=== PATIENT | female | born 1945 | race Caucasian/White ===

== ENCOUNTER 2017-01-21 18:47 | Emergency (ER) | payer MEDICAID ==
[2017-01-21 18:58] VITALS: PULSE 63; RESP 18; TEMP 98; O2SAT 97
[2017-01-21 19:01] VITALS: BP 152/86
--- NOTE | 2017-01-21 19:33 | C.PDOC ---
History Of Present Illness 71 year old female presents to ED with complaints of itchy rash and skin for few weeks. Denies any fever, discharge, SOB, or known allergens. Time Seen by Provider: 01/21/17 19:26 Chief Complaint (Nursing): Abnormal Skin Integrity History Per: Patient History/Exam Limitations: no limitations Onset/Duration Of Symptoms: Days Current Symptoms Are (Timing): Still Present Quality Of Symptoms: Itching Severity: Mild Recent travel outside of the [place]: No Past Medical History Reviewed: Historical Data, Nursing Documentation, Vital Signs Vital Signs: Last Vital Signs Temp 98 F 01/21/17 18:57 Pulse 63 01/21/17 18:57 Resp 18 01/21/17 18:57 BP 152/86 H 01/21/17 18:57 Pulse Ox 97 01/21/17 20:09 - Medical History PMH: HTN, Hypercholesterolemia Surgical History: Cholecystectomy Family History: States: Unknown Family Hx - Social History Hx Tobacco Use: No Hx Alcohol Use: No Hx Substance Use: No - Immunization History Hx Tetanus Toxoid Vaccination: No Hx Influenza Vaccination: No Hx Pneumococcal Vaccination: No Review Of Systems Constitutional: Negative for: Fever, Chills Cardiovascular: Negative for: Chest Pain Respiratory: Negative for: Shortness of Breath, Sputum, Wheezing Gastrointestinal: Negative for: Vomiting, Abdominal Pain, Diarrhea Skin: Positive for: Rash (itchy rash and skin) Neurological: Negative for: Headache, Dizziness Physical Exam - Physical Exam Appears: Non-toxic, No Acute Distress Skin: Warm, Dry, Rash (dryness and flaky areas to bilateral dorsal legs and upper extremities. no vesicles, patches, plaques or discharge) Head: Atraumatic, Normacephalic Eye(s): bilateral: Normal Inspection, EOMI Neck: Normal ROM Chest: Symmetrical Extremity: Normal ROM, No Swelling Neurological/Psych: Oriented x3, Normal Speech, Normal Motor, Normal Sensation ED Course And Treatment O2 Sat by Pulse Oximetry: 97 (room air) Pulse Ox Interpretation: Normal Medical Decision Making Medical Decision Making: Skin exam shows no acute rash, cellulitis or signs of fungal infection. Itchiness likely related to dryness and eczema. Recommend moisturizer. Disposition Counseled Patient/Family Regarding: Need For Followup, Rx Given - Disposition Referrals: Clinic,Med Surg [Primary Care Provider] - Disposition: HOME/ ROUTINE Disposition Time: 19:32 Condition: GOOD Additional Instructions: Wero day al delores dos veces al da Harry benadryl segn sea necesario para picar Siga con el dermatlogo si los sntomas persisten Prescriptions: Colloidal Oatmeal [Eucerin Eczema Relief] 226 gm TP DAILY #1 cream..g. Instructions: Dermatitis (ED) Print Language: MONGOLIAN - POA Present On Arrival: None - Clinical Impression Clinical Impression: Dermatitis - PA / STRETCH BOX TENDER / Resident Statement MD/DO has reviewed & agrees with the documentation as recorded. - Scribe Statement The provider has reviewed the documentation as recorded by the Scribe Ej Irwin All medical record entries made by the Scribe were at my direction and personally dictated by me. I have reviewed the chart and agree that the record accurately reflects my personal performance of the history, physical exam, medical decision making, and the department course for this patient. I have also personally directed, reviewed, and agree with the discharge instructions and disposition.
== END 2017-01-21 19:58 | disposition home or self-care (01) ==
LOC: SUPCPDRO 18:47 → C.ER 18:47
DX: L30.9 Dermatitis, unspecified (principal)

== ENCOUNTER 2017-03-22 14:19 | Emergency (ER) | payer MEDICAID ==
[2017-03-22 14:24] VITALS: BP 139/77; PULSE 51; RESP 18; TEMP 97.7; O2SAT 99
[2017-03-22 14:53] LABS: BASO # 0.1 K/uL (0.0-0.2); BASO % 1.3 % (0.0-2.0); EOS # 0.2 K/uL (0.0-0.7); LYMPH # 2.8 K/uL (1.0-4.3); LYMPH % 47.8 % (20.0-40.0); MEAN CELL VOLUME 87.8 fL (81.0-99.0); MEAN CORPUSCULAR HEMOGLOBIN 29.4 pg (27.0-31.0); MEAN CORPUSCULAR HGB CONC 33.5 g/dL (33.0-37.0); MEAN PLATELET VOLUME 9.6 fL (7.2-11.7); MONO # 0.9 K/uL (0.0-0.8); MONO % 16.1 % (0.0-10.0); NEUT # 1.8 K/uL (1.8-7.0); NEUT % 30.8 % (50.0-75.0); NRBC % 0.1 % (0.0-2.0); RBC 5.09 Mil/uL (3.80-5.20); RED CELL DISTRIBUTION WIDTH 13.7 % (11.5-14.5); WHITE BLOOD COUNT 5.8 K/uL (4.8-10.8)
[2017-03-22 15:05] LABS: ALBUMIN 4.2 g/dL (3.5-5.0)
[2017-03-22 15:08] LABS: ALB/GLOB RATIO 1.1 (1.0-2.1); ALT/SGPT 30 U/L (9-52); AST/SGOT 39 U/L (14-36); BLOOD UREA NITROGEN 17 mg/dL (7-17); GFR AFRICAN-AMERICAN > 60; GFR NON-AFRICAN AMERICAN > 60
[2017-03-22 15:09] LABS: CALCIUM 8.9 mg/dl (8.6-10.4)
[2017-03-22] MEDS ORDERED: DiphenhydrAMINE 50 mg/ml Inj IVP STA (15:29)
[2017-03-22] MEDS ORDERED: DiphenhydrAMINE 50 mg/ml Inj ONE (15:34)
--- NOTE | 2017-03-22 16:29 | C.PDOC ---
History Of Present Illness 03/22/2017 Génesis Brunson is a 71 year old female, whose past medical history includes HTN, and Hypercholesterolemia, who presents to the emergency department complaining of a pleuritic skin rash for the past two weeks. Patient reports going to see her primary care doctor who gave her creams but has no improvement. Patient also notes that it was hard for her to sleep at night because of severe pruritis. Patient sts she will see a steamblaster in two weeks. Patient denies chest pain, shortness of breath, headache, fever, chills, cough, nausea, vomiting, diarrhea, abdominal pain, dizziness or lightheadedness. Time Seen by Provider: 03/22/17 14:28 Chief Complaint (Nursing): Abnormal Skin Integrity History Per: Patient History/Exam Limitations: no limitations Onset/Duration Of Symptoms: Gradual Current Symptoms Are (Timing): Still Present Quality Of Symptoms: Painful Past Medical History Reviewed: Historical Data, Nursing Documentation, Vital Signs Vital Signs: Last Vital Signs Temp 97.7 F 03/22/17 14:23 Pulse 51 L 03/22/17 14:23 Resp 18 03/22/17 14:23 BP 139/77 03/22/17 14:23 Pulse Ox 99 03/22/17 18:47 - Medical History PMH: HTN, Hypercholesterolemia Surgical History: Cholecystectomy Family History: States: Unknown Family Hx - Social History Hx Tobacco Use: No Hx Alcohol Use: No Hx Substance Use: No - Immunization History Hx Tetanus Toxoid Vaccination: No Hx Influenza Vaccination: No Hx Pneumococcal Vaccination: No Review Of Systems Except As Marked, All Systems Reviewed And Found Negative. Constitutional: Negative for: Fever Cardiovascular: Negative for: Chest Pain Respiratory: Negative for: Shortness of Breath Gastrointestinal: Negative for: Abdominal Pain Skin: Positive for: Rash Physical Exam - Physical Exam Appears: Well, Non-toxic, No Acute Distress Skin: Normal Color, Warm, Dry, Rash (pruritus rash) Head: Atraumatic, Normacephalic Eye(s): bilateral: Normal Inspection, PERRL, EOMI Nose: Normal Throat: Normal Neck: Normal Cardiovascular: Rhythm Regular Respiratory: Normal Breath Sounds Gastrointestinal/Abdominal: Normal Exam Back: Normal Inspection Extremity: Normal ROM Neurological/Psych: Oriented x3, Normal Speech, Normal Cognition, Normal Motor, Normal Sensation ED Course And Treatment - Laboratory Results Result Diagrams: 03/22/17 14:50 03/22/17 14:50 Lab Interpretation: Normal O2 Sat by Pulse Oximetry: 99 (room air) Pulse Ox Interpretation: Normal Medical Decision Making Medical Decision Makin03/22/2017 Plans: -- Labs -- Benadryl and Solumedrol Progress Notes: Patient's lab came back without acute changes. Patient feels better. Discussed results and plan with patient who expresses understanding. All questions answered and there is agreement with the plan to discharge home with instructions. Patient stable for discharge. Advised to return if symptoms persist or worsen. Disposition - Disposition Disposition: HOME/ ROUTINE Disposition Time: 16:24 Condition: STABLE Additional Instructions: Follow up with PMD and Pet Care Worker within 1-2 days. Return to Ed if feel worse. Prescriptions: DiphenhydrAMINE [Benadryl] 25 mg PO .Q4-6 H #30 cap Prednisolone Sod Phosphate [Orapred Odt] 10 mg PO DAILY #19 odt Famotidine [Pepcid] 20 mg PO BID #20 tab Instructions: Urticaria (ED) Forms: [employer] (Georgian) - Clinical Impression Clinical Impression: Urticaria - Scribe Statement The provider has reviewed the documentation as recorded by the Scribe 03/22/2017 Scribe Attestation: Annette Wills MD Scribe Attestation: All medical record entries made by the Scribe were at my direction and personally dictated by me. I have reviewed the chart and agree that the record accurately reflects my personal performance of the history, physical exam, medical decision making, and the department course for this patient. I have also personally directed, reviewed, and agree with the discharge instructions and disposition.
== END 2017-03-22 16:34 | disposition home or self-care (01) ==
LOC: C.ER 14:19
DX: L50.9 Urticaria, unspecified (principal)
CPT/HCPCS: 80053; 85025; 96374; 96375; 99283; J1200; J2930

== ENCOUNTER 2017-08-18 09:42 | Emergency (ER) | payer MEDICAID ==
--- NOTE | 2017-08-18 11:47 | C.PDOC ---
History Of Present Illness 72 y/o female, with history of borderline diabetes, presents to the ER for evaluation of bilateral flank pain. Patient reports that the pain radiates into the groin and left leg. Patient reports that her pain becomes worse with movement. Patient also reports that she has a problem with her eyes. Patient states that she has intermittent fevers but she does not check her temperature.Patient reports that she has constipation and vaginal discharge. Patient states that she takes Tylenol and is allergic to Motrin. Patient denies having nausea, vomiting, dysuria, and hematuria. Time Seen by Provider: 08/18/17 10:11 Chief Complaint (Nursing): Back Pain History Per: Patient History/Exam Limitations: no limitations Onset/Duration Of Symptoms: Hrs Current Symptoms Are (Timing): Still Present Severity: Moderate Past Medical History Reviewed: Historical Data, Nursing Documentation, Vital Signs Vital Signs: Last Vital Signs Temp 98.1 F 08/18/17 16:34 Pulse 70 08/18/17 16:34 Resp 20 08/18/17 16:34 BP 146/83 08/18/17 16:34 Pulse Ox 98 08/18/17 16:34 - Medical History PMH: HTN, Hypercholesterolemia Surgical History: Cholecystectomy Family History: States: No Known Family Hx - Social History Hx Tobacco Use: No Hx Alcohol Use: No Hx Substance Use: No - Immunization History Hx Tetanus Toxoid Vaccination: No Hx Influenza Vaccination: No Hx Pneumococcal Vaccination: No Review Of Systems Except As Marked, All Systems Reviewed And Found Negative. Gastrointestinal: Positive for: Abdominal Pain (bilateral flank pain, radiates into groin and left leg), Constipation. Negative for: Nausea, Vomiting Genitourinary: Positive for: Vaginal Discharge. Negative for: Dysuria, Hematuria Physical Exam - Physical Exam Appears: Non-toxic, Other (uncomfortable) Skin: Normal Color, Warm Head: Atraumatic, Normacephalic Eye(s): bilateral: Normal Inspection, PERRL Nose: Normal Oral Mucosa: Moist Neck: Normal, Supple Cardiovascular: Rhythm Regular Respiratory: Normal Breath Sounds, No Accessory Muscle Use Gastrointestinal/Abdominal: Normal Exam, No Soft, Tenderness Pelvic: Normal External Exam, No Normal Speculum Exam, No Normal Bimanual Exam, No Vaginal Discharge Extremity: Bilateral: Atraumatic Neurological/Psych: Oriented x3, Normal Speech, Normal Cognition, Normal Motor, Normal Sensation ED Course And Treatment - Laboratory Results Result Diagrams: 08/18/17 11:56 08/18/17 11:56 O2 Sat by Pulse Oximetry: 100 (RA) Pulse Ox Interpretation: Normal - Other Rad No standard instances X-Ray: Viewed By Me, Read By Radiologist Interpretation: IMPRESSION: Moderate constipation. - CT Scan/US No standard instances Other Rad Studies (CT/US): Read By Radiologist CT/US Interpretation: IMPRESSION: Diverticulosis without CT evidence of acute diverticulitis. Too small to characterize 4 mm left renal hypodensity ; statistically likely cyst. Partially imaged cardiomegaly. Additional incidental findings as above. Medical Decision Making Medical Decision Making: Impression: Bilateral Flank Pain Plan: --ECG --Labs -- X-Ray Abdomen --Abd & Pelv CT W/O IV Contrast Test Results --Labs WNL --X Ray/CAT Scan shows constipation Updates 16:00 Patient discharged with Metamucil and Colace. Disposition Counseled Patient/Family Regarding: Studies Performed, Diagnosis, Need For Followup, Rx Given - Disposition Referrals: [facility] [Outside] Disposition: HOME/ ROUTINE Disposition Time: 16:00 Condition: STABLE Additional Instructions: Follow up with your doctor or our clinic. Use medications as indicated. Avoid eating rice and bread. You have constipation. Prescriptions: Docusate Sodium [Colace] 100 mg PO BID #30 capsule Phosphate Enema [Fleet Enema 135 Ml] 30 ml RC DAILY #3 nma Psyllium Husk/Aspartame [Metamucil Fiber Singles Packet] 3.4 gm PO DAILY #15 powd.pack Instructions: Constipation (ED) Forms: [employer] (Bulgarian), Gen Discharge Inst Cypriot, [employer] (Cypriot) - POA Present On Arrival: None - Clinical Impression Clinical Impression: Abdominal pain, Constipation - Scribe Statement The provider has reviewed the documentation as recorded by the Radha Gallegos Provider Attestation: All medical record entries made by the Radha were at my direction and personally dictated by me. I have reviewed the chart and agree that the record accurately reflects my personal performance of the history, physical exam, medical decision making, and the department course for this patient. I have also personally directed, reviewed, and agree with the discharge instructions and disposition.
--- NOTE | 2017-08-18 12:04 | CT ---
PROCEDURE: CT Abdomen and Pelvis without Oral or IV contrast. HISTORY: abd pain COMPARISON: None available TECHNIQUE: Contiguous axial images of the abdomen and pelvis. No oral or IV contrast administered. Coronal and Sagittal reformats generated and reviewed. Radiation dose: Total exam DLP = 595.63 mGy-cm. This CT exam was performed using one or more of the following dose reduction techniques: Automated exposure control, adjustment of the mA and/or kV according to patient size, and/or use of iterative reconstruction technique. FINDINGS: There is limited evaluation of the solid organs without the administration of IV contrast. LOWER THORAX: Mild bibasilar atelectasis. No visible pleural effusion. Cardiomegaly. LIVER: Unremarkable unenhanced appearance. GALLBLADDER AND BILE DUCTS: Cholecystectomy. PANCREAS: Unremarkable unenhanced appearance. SPLEEN: Unremarkable unenhanced appearance. ADRENALS: Unremarkable unenhanced appearance. KIDNEYS AND URETERS: No hydronephrosis or obstructing renal calculus. Too small to characterize 4 mm left renal hypodensity ; statistically likely cyst. BLADDER: The urinary bladder appears unremarkable. REPRODUCTIVE: Uterus is present. APPENDIX: The appendix appears within normal limits of caliber. No secondary signs of acute appendicitis. BOWEL: The stomach is nondistended. Lack of oral contrast limits evaluation for bowel pathology. The bowel loops appear within normal limits of caliber without evidence of intestinal obstruction. Diverticulosis without CT evidence of acute diverticulitis. PERITONEUM: No significant free fluid. No definite free air. LYMPH NODES: No bulky lymphadenopathy identified. VASCULATURE: Atherosclerotic calcifications. No aortic aneurysm. BONES: Degenerative changes of the spine. OTHER FINDINGS: Tiny fat containing umbilical hernia. IMPRESSION: Diverticulosis without CT evidence of acute diverticulitis. Too small to characterize 4 mm left renal hypodensity ; statistically likely cyst. Partially imaged cardiomegaly. Additional incidental findings as above.
[2017-08-18 12:09] LABS: BASO # 0.1 K/uL (0.0-0.2); BASO % 1.2 % (0.0-2.0); EOS # 0.2 K/uL (0.0-0.7); EOS % 2.9 % (0.0-4.0); HEMOGLOBIN 15.3 g/dL (11.0-16.0); LYMPH # 2.2 K/uL (1.0-4.3); LYMPH % 36.8 % (20.0-40.0); MEAN CELL VOLUME 87.3 fL (81.0-99.0); MEAN CORPUSCULAR HEMOGLOBIN 29.8 pg (27.0-31.0); MEAN CORPUSCULAR HGB CONC 34.1 g/dL (33.0-37.0); MONO # 0.7 K/uL (0.0-0.8); NEUT # 2.8 K/uL (1.8-7.0); NEUT % 47.1 % (50.0-75.0); NRBC % 0.1 % (0.0-2.0); RBC 5.15 Mil/uL (3.80-5.20); RED CELL DISTRIBUTION WIDTH 14.2 % (11.5-14.5)
[2017-08-18 12:40] LABS: ALBUMIN 4.4 g/dL (3.5-5.0); CALCIUM 9.2 mg/dl (8.6-10.4); GFR AFRICAN-AMERICAN > 60; GFR NON-AFRICAN AMERICAN > 60; LIPASE 141 U/L (23-300)
[2017-08-18 12:45] LABS: ALB/GLOB RATIO 1.1 (1.0-2.1); ALT/SGPT 28 U/L (9-52); AST/SGOT 38 U/L (14-36); BLOOD UREA NITROGEN 16 mg/dL (7-17)
[2017-08-18 12:52] LABS: B-TYPE NATRIURETIC PEPTIDE 40.8 pg/mL (0-900)
--- NOTE | 2017-08-18 14:06 | RAD ---
HISTORY: abd pain COMPARISON: CT abdomen and pelvis without contrast performed 08/18/17 FINDINGS: Examination limited by habitus. BOWEL: Nonobstructive bowel gas. Moderate constipation. No definite free air. BONES: Degenerative changes. OTHER FINDINGS: None. IMPRESSION: Moderate constipation.
[2017-08-18 15:06] LABS: SQUAMOUS EPITHIAL 1 /hpf (0-5); URINE BILIRUBIN NEGATIVE (NEGATIVE); URINE BLOOD NEGATIVE (NEGATIVE); URINE CLARITY Clear (Clear); URINE COLOR Yellow (YELLOW); URINE GLUCOSE (UA) NORMAL (Normal); URINE LEUKOCYTE ESTERASE NEG Leu/uL (Negative); URINE NITRATE NEGATIVE (NEGATIVE); URINE PROTEIN NEGATIVE (NEGATIVE); URINE UROBILINOGEN NORMAL mg/dL (0.2-1.0)
[2017-08-18 16:35] VITALS: BP 146/83; PULSE 70; RESP 20; TEMP 98.1
[2017-08-18 17:03] VITALS: O2SAT 100
--- NOTE | 2017-08-21 07:05 | CARD ---
APPROVED REPORT EKG Measurement Heart [id number] <Conclusion> Marked sinus bradycardia Left axis deviation Abnormal ECG
== END 2017-08-18 16:35 | disposition home or self-care (01) ==
LOC: C.ER 09:42
DX: K59.00 Constipation, unspecified (principal); R10.9 Unspecified abdominal pain